=== PATIENT | female | born 1960 | race Hispanic/Latino ===

== ENCOUNTER 2018-01-24 06:56 | Day surgery (SDC) | payer BC ==
[2018-01-23 13:50] VITALS: BMI 38.0
--- NOTE | 2018-01-24 11:03 | OP ---
DATE OF PROCEDURE: 01/24/2018 SURGEON: Gerardo Mantilla M.D. PROCEDURES: Colonoscopy with polypectomy. PREOPERATIVE DIAGNOSIS: History of colonoscopy in 12/2016 with large cecal tubulovillous adenoma rem stefanie piecemeal and then cauterized to ablate the rest of it. This was examined to make sure that the polyp was completely removed. POSTOPERATIVE DIAGNOSES: 1. Complete eradication of cecal polyp. 2. Diminutive polyp in the ascending colon, 2 mm removed by cold snare polypectomy and submitted to Pathology. 3. Mild diverticulosis coli. 4. Otherwise, normal colonoscopy. ANESTHESIA: TIVA. PROCEDURE IN DETAIL: After the patient was informed of the risks and benefits and possible complicat ions of endoscopy including perforation, bleeding, reaction to medication, aspiration, informed conse nt was obtained. The patient was brought to endoscopy suite where she was sedated in a gradual fashi on. Once she was comfortable, rectal exam was performed. The endoscope was advanced in the anal can al, through the colon to the cecum was identified by the ileocecal valve and appendiceal orifice. Th e prep was very good. The previous scar in the cecum associated with previous large polyp revealed n o residual polyp tissue, it seemed completely removed. There was 1 diminutive polyp in the ascending colon that was 2 mm in size, removed by snare polypectomy and submitted to pathology. No other poly ps were seen. Retroflexed views were normal. The scope was removed. The patient tolerated procedur e well, no complications. RECOMMENDATIONS: 1. Repeat colonoscopy in 3 years. 2. The patient notes she has been having diarrhea for several months now, usually urgent after meals . This may be related to her metformin. I have recommended a trial of 4 days off of metformin and i f her diarrhea resolves it may be reasonable to place her on a lower dose of metformin. She will humberto k with her primary physician about this. If her diarrhea persists despite holding metformin for 4 da ys I asked her to follow up with me in my office.
[2018-01-24] MEDS ORDERED: Lidocaine 1% PF 5 ML VIAL ONE (14:07)
[2018-01-24] MEDS ORDERED: PROPOFOL 200 MG/20 ML VIAL ONE (14:07)
== END 2018-01-24 11:12 | disposition home or self-care (01) ==
LOC: SDC 06:56
PROVIDERS: ATTEND Internal Medicine Gastroenterology
PROC: 0DBK8ZX Excision of Ascending Colon, Via Natural or Artificial Opening Endoscopic, Diagnostic (ICD-10-PCS; principal; 2018-01-24)
DX: Z09 Encounter for follow-up examination after completed treatment for conditions other than malignant neoplasm (principal); K63.5 Polyp of colon; K57.30 Diverticulosis of large intestine without perforation or abscess without bleeding; Z86.010 Personal history of colon polyps; Z91.040 Latex allergy status; Z79.1 Long term (current) use of non-steroidal anti-inflammatories (NSAID); Z79.82 Long term (current) use of aspirin; Z79.4 Long term (current) use of insulin; Z79.899 Other long term (current) drug therapy
CPT/HCPCS: 36416; 88304; J2001; J2704

== ENCOUNTER 2018-03-14 08:13 | Outpatient (CLI) | payer BC | END 2018-03-14 08:14 | disposition home or self-care (01) | LOC: BICMAMMO 08:13 | PROVIDERS: ATTEND Family Medicine | DX: Z12.31 Encounter for screening mammogram for malignant neoplasm of breast (principal) | CPT/HCPCS: 77063; 77067 ==

== ENCOUNTER 2018-03-14 08:59 | Outpatient (CLI) | payer BC | END 2018-03-14 09:00 | disposition home or self-care (01) | LOC: BICRAD 08:59 | PROVIDERS: ATTEND Family Medicine | DX: M25.561 Pain in right knee (principal); G89.29 Other chronic pain; M17.11 Unilateral primary osteoarthritis, right knee ==